=== PATIENT | female | born 1980 | race Caucasian/White ===

== ENCOUNTER 2024-09-19 09:13 | Emergency (ER) | payer MEDICAID ==
[2024-09-19] MEDS: Ketorolac 15 MG/ML SDV IVPUSH ONE (09:15)
[2024-09-19] MEDS: Ondansetron 4 MG/2 ML SDV IVPUSH ONE (09:18)
[2024-09-19] MEDS: Ondansetron 4 MG Tab.DIS PO ONE (09:18)
[2024-09-19] MEDS ORDERED: Sodium Chloride 0.9% 10 ML Syringe FLUSH PRN (09:26)
[2024-09-19 09:38] LABS: BASOPHILS ABSOLUTE AUTO 0.02 K/uL (0.02-0.10); BASOPHILS PERCENT AUTO 0.2 % (0.0-0.5); EOSINOPHILS ABSOLUTE AUTO 0.02 K/uL (0.04-0.40); EOSINOPHILS PERCENT AUTO 0.2 % (1.0-5.0); LYMPHOCYTES ABSOLUTE AUTO 0.94 K/uL (1.50-4.00); LYMPHOCYTES PERCENT AUTO 10.2 % (20.0-40.0); MEAN PLATELET VOLUME 10.7 fL (6.0-10.0); MONOCYTES ABSOLUTE AUTO 0.24 K/uL (0.20-0.80); MONOCYTES PERCENT AUTO 2.6 % (3.0-10.0); NEUTROPHILS ABSOLUTE AUTO 7.98 K/uL (2.00-7.50); NEUTROPHILS PERCENT AUTO 86.8 % (45.0-70.0); PLATELET COUNT,PLT 212 K/uL (150-500); RED BLOOD CELL COUNT 5.19 M/uL (3.80-5.80); RED CELL DISTRIBUTION WIDTH 12.3 % (11.0-16.0); WHITE BLOOD CELL COUNT,WBC 9.2 K/uL (4.0-11.0)
[2024-09-19 09:55] LABS: BLOOD UREA NITROGEN,BUN 11 mg/dL (8-26); CARBON DIOXIDE,CO2 26.5 mmol/L (21.0-32.0); CHLORIDE,CL 104 mmol/L (98-107); CREATININE 0.85 mg/dL (0.55-1.02); ESTIMATED GFR 88 mL/min (>60); GLUCOSE RANDOM 137 mg/dL (74-100); POTASSIUM,K 3.5 mmol/L (3.5-5.1); SODIUM,NA 138 mmol/L (136-145)
[2024-09-19] MEDS: SUMAtriptan 6 MG/0.5 ML SDV SUBCUT ONE (09:55)
[2024-09-19] MEDS ORDERED: Ondansetron 4 MG Tab.DIS ONE (10:45)
[2024-09-19 10:58] VITALS: BP 137/87; PULSE 60
== END 2024-09-19 10:50 | disposition home or self-care (01) ==
LOC: LB.ED 09:13
DX: G43.909 Migraine, unspecified, not intractable, without status migrainosus (principal); Z79.899 Other long term (current) drug therapy
CPT/HCPCS: 36415; 80048; 85025; 96361; 96372; 96374; 96375; 99283; 99284-25; A9270-GY; J1885; J2405; J3030; J7030; Q0162